=== PATIENT | female | born 1975 | race Caucasian/White ===

== ENCOUNTER 2017-02-25 12:36 | Emergency (ER) | payer SELFPAY ==
[~2017-02-25] VITALS: Ht 172.7 cm; Wt 99.8 kg
--- NOTE | 2017-02-25 12:49 | Emergency Room Report ---
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 N Clinical Suspician of Infection? N Mental Status: 1 - Regular (Normal Baseline) Sepsis Risk:Possible Sepsis Risk Have you (or family members/close friends) recently traveled outside the [place]? N If Yes, where/when: Have you had exposure to infectious disease within the past month? N TB? Other? Specify: Comment The patient arrives extremely anxious, stating that she was watching TV, reading her Bible and began feeling strange in the head and like her vision was going black. She laid down on the floor. She took her blood pressure and says he kept dropping down to 75 systolic. She did not pass out. Initially she did not have any problems breathing or with chest pain, but on the way here developed those symptoms as well. She has a history of anxiety. She says that she is extremely stressed and was up all night long to distress. She has had previous problems with chest pain and shortness of breath, she has seen a heat transfer technician. She says she had an echocardiogram that was normal. She says that she complained to her primary care physician last week that she was having palpitations and heart rate increases just walking across the room and her physician deandre some blood work, but she does not yet know the results. ALLERGIES Coded Allergies: No Known Allergies (02/25/17) History Medical History General CAD? No Angina: No AL: No Hypertension? No Hyperlipidemia? No CHF? No DVT? No PE? No COPD? No Asthma? No Anemia? Yes GERD? No Gastric ulcers? No GI Bleed? No Hernia? No Thyroid Problems? No Hypothyroidism? Yes CVA? No Seizures? No Diabetes? No Renal Insuffiency? No End Stage Renal Disease? No UTI? No Stones? No BPH? No GB Disease: No Nephritic Syndrome? No Asplenia? No Hepatitis? No Sickle Cell Disease? No Arthritis? No Migraines? No Cataracts? No Glaucoma? No MRSA? No HIV? No TB? No Anxiety? No Depression? No Cancer? 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 Social History Smoking Hx Smoker: Former Smoker Tobacco: No Review of Systems All Other Systems Reviewed and Negative Constitutional denies fever Eyes see HPI Respiratory shortness of breath Cardiovascular chest pain, palpitations Psychiatric/Neurological anxiety Physical Exam Vital Signs Vital Signs Date Time Temp Pulse Resp B/P Pulse O2 O2 Flow FiO2 Ox Delivery Rate 02/25 1359 68 18 137/95 99 02/25 1343 68 18 137/95 99 02/25 1336 16 02/25 1318 110 22 175/92 100 02/25 1238 98.3 120 22 177/98 100 General Appearance extrememly anxious and hyperventilating Eye Exam - bilateral eye normal exam, bilateral eye PERRL, bilateral eye EOMI Ear, Nose, Throat hearing grossly normal, normal ENT inspection Neck normal inspection, non-tender, supple, full range of motion Respiratory Status Yes: trachea midline, chest symmetrical, non tender chest. No: respiratory distress. Lung Sounds bilateral: normal breath sounds, lungs clear. Cardiovascular normal exam, regular rate/rhythm, no peripheral edema, no gallop, no JVD, no murmur, no rub, normal peripheral pulses Peripheral Pulses Pulses normal Yes Gastrointestinal normal bowel sounds, normal exam, non tender, soft, no organomegaly Extremities non-tender, normal range of motion, normal inspection Neurologic alert, machine bender II-XII nml as tested, normal exam, oriented x 3 Mental status anxious Skin intact, normal color, warm/dry Medical Decision Making LABS/Meds/Orders Pt receiving controlled substance in ED? Yes Bharath was queried for this patient? Yes Results/Orders Laboratory Tests 02/25/17 1240: TSH 2.22, Thyroxine (T4) 9.7 02/25/17 1240: Sodium 138, Potassium 3.1 L, Chloride 101, Carbon Dioxide 26, BUN 9, Creatinine 0.7, Estimated Creat Clear 167, Estimated GFR (MDRD) 92, Glucose 114 H, Calcium 9.3, Total Bilirubin 0.8, AST 12 L, ALT 21, Alkaline Phosphatase 78, Creatine Kinase 52, CK-MB (CK-2) Rel Index 1.0, CK and CKMB Interp < 0.5, Troponin I < 0.02, Total Protein 7.9, Albumin 4.1, Globulin 3.8 H, Albumin/Globulin Ratio 1.1, WBC 8.0, RBC 4.66, Hgb 13.7, Hct 41.2, MCV 88.3, RDW 12.6, Plt Count 294, MPV 7.6, Gran % 66.6, Gran # 5.3, Lymphocytes % 25.3, Monocytes % 6.0, Eosinophils % 1.1, Basophils % 0.9, Lymphocytes # 2.0, Monocytes # 0.5, Eosinophils # 0.1, Basophils # 0.1, PUBS MCHC 33.3, MCH 29.4 Current Medication Orders Sig/Kaylin Start time Last Medication Dose Route Stop Time Status Admin Potassium Chloride 40 MEQ ONCE ONE 02/25 1345 DC 02/25 PO 02/25 134 1342 Potassium Chloride 0 .STK-MED ONE 02/25 1341 DC PO Lorazepam 0 .STK-MED ONE 02/25 1333 DC .ROUTE Lorazepam 1 MG ONCE ONE 02/25 1315 DC IV 02/25 1316 Sodium Chloride 10 ML PRN PRN 02/25 1315 DCD IV 02/26 1301 Orders Procedure Date/time Status THYROID STIMULATING HORMONE 02/25 1312 Complete THYROXINE (T4) 02/25 1312 Complete ELECTROCARDIOGRAM REQUEST 02/25 1301 Active IV SALINE LOCK 02/25 1301 Active RV TECHNICIAN 02/25 1301 Active CBC WITH AUTO DIFF 02/25 1301 Complete CARDIAC ENZYMES 02/25 1301 Complete CHEM 12 PROFILE 02/25 1301 Complete CM/EKG CM/EKG Comments EKG interpreted by José Manuel Law MD: Rhythm: sinus tachycardia Rate: 117 [place]: normal Ectopy: none Conduction: normal ST Segment Changes: none T Wave Changes: none Q Waves: none No evidence of acute ischemia or injury Poor R-wave progression No prior EKGs available for comparison Progress - 1:50 PM: The patient's symptoms have completely resolved. She is now sitting upright in bed smiling using a smart phone. She does not want any further evaluation or treatment. She refused x-ray. She wants to be discharged. She declined Ativan. She says she just feels embarrassed. Departure Departure Disposition DC Home or Self Care(routine) Clinical Impression Primary Impression: Anxiety state Secondary Impressions: Acute hyperventilation syndrome, Chest pain, atypical Condition STABLE Patient Instructions DI for Anxiety -- Adult, DI for Atypical Chest Pain, DI for Hyperventilation Additional Instructions Additional instructions for CHEST PAIN: See your physician as soon as possible for further evaluation. Return immediately if worsening chest pain, vomiting, shortness of breath, fever, coughing of blood. ED Critical Care Critical Care No at [id number]
--- NOTE | 2017-02-25 12:49 | Emergency Room Report ---
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 N Clinical Suspician of Infection? N Mental Status: 1 - Regular (Normal Baseline) Sepsis Risk:Possible Sepsis Risk Have you (or family members/close friends) recently traveled outside the [place]? N If Yes, where/when: Have you had exposure to infectious disease within the past month? N TB? Other? Specify: Comment The patient arrives extremely anxious, stating that she was watching TV, reading her Bible and began feeling strange in the head and like her vision was going black. She laid down on the floor. She took her blood pressure and says he kept dropping down to 75 systolic. She did not pass out. Initially she did not have any problems breathing or with chest pain, but on the way here developed those symptoms as well. She has a history of anxiety. She says that she is extremely stressed and was up all night long to distress. She has had previous problems with chest pain and shortness of breath, she has seen a radiation therapy technician. She says she had an echocardiogram that was normal. She says that she complained to her primary care physician last week that she was having palpitations and heart rate increases just walking across the room and her physician deandre some blood work, but she does not yet know the results. ALLERGIES Coded Allergies: No Known Allergies (02/25/17) History Medical History General CAD? No Angina: No [place]: No Hypertension? No Hyperlipidemia? No CHF? No DVT? No PE? No COPD? No Asthma? No Anemia? Yes GERD? No Gastric ulcers? No GI Bleed? No Hernia? No Thyroid Problems? No Hypothyroidism? Yes CVA? No Seizures? No Diabetes? No Renal Insuffiency? No End Stage Renal Disease? No UTI? No Stones? No BPH? No GB Disease: No Nephritic Syndrome? No Asplenia? No Hepatitis? No Sickle Cell Disease? No Arthritis? No Migraines? No Cataracts? No Glaucoma? No MRSA? No HIV? No TB? No Anxiety? No Depression? No Cancer? 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 Social History Smoking Hx Smoker: Former Smoker Tobacco: No Review of Systems All Other Systems Reviewed and Negative Constitutional denies fever Eyes see HPI Respiratory shortness of breath Cardiovascular chest pain, palpitations Psychiatric/Neurological anxiety Physical Exam Vital Signs Vital Signs Date Time Temp Pulse Resp B/P Pulse O2 O2 Flow FiO2 Ox Delivery Rate 02/25 1359 68 18 137/95 99 02/25 1343 68 18 137/95 99 02/25 1336 16 02/25 1318 110 22 175/92 100 02/25 1238 98.3 120 22 177/98 100 General Appearance extrememly anxious and hyperventilating Eye Exam - bilateral eye normal exam, bilateral eye PERRL, bilateral eye EOMI Ear, Nose, Throat hearing grossly normal, normal ENT inspection Neck normal inspection, non-tender, supple, full range of motion Respiratory Status Yes: trachea midline, chest symmetrical, non tender chest. No: respiratory distress. Lung Sounds bilateral: normal breath sounds, lungs clear. Cardiovascular normal exam, regular rate/rhythm, no peripheral edema, no gallop, no JVD, no murmur, no rub, normal peripheral pulses Peripheral Pulses Pulses normal Yes Gastrointestinal normal bowel sounds, normal exam, non tender, soft, no organomegaly Extremities non-tender, normal range of motion, normal inspection Neurologic alert, stone product fabricator II-XII nml as tested, normal exam, oriented x 3 Mental status anxious Skin intact, normal color, warm/dry Medical Decision Making LABS/Meds/Orders Pt receiving controlled substance in ED? Yes Bharath was queried for this patient? Yes Results/Orders Laboratory Tests 02/25/17 1240: TSH 2.22, Thyroxine (T4) 9.7 02/25/17 1240: Sodium 138, Potassium 3.1 L, Chloride 101, Carbon Dioxide 26, BUN 9, Creatinine 0.7, Estimated Creat Clear 167, Estimated GFR (MDRD) 92, Glucose 114 H, Calcium 9.3, Total Bilirubin 0.8, AST 12 L, ALT 21, Alkaline Phosphatase 78, Creatine Kinase 52, CK-MB (CK-2) Rel Index 1.0, CK and CKMB Interp < 0.5, Troponin I < 0.02, Total Protein 7.9, Albumin 4.1, Globulin 3.8 H, Albumin/Globulin Ratio 1.1, WBC 8.0, RBC 4.66, Hgb 13.7, Hct 41.2, MCV 88.3, RDW 12.6, Plt Count 294, MPV 7.6, Gran % 66.6, Gran # 5.3, Lymphocytes % 25.3, Monocytes % 6.0, Eosinophils % 1.1, Basophils % 0.9, Lymphocytes # 2.0, Monocytes # 0.5, Eosinophils # 0.1, Basophils # 0.1, PUBS MCHC 33.3, MCH 29.4 Current Medication Orders Sig/Kaylin Start time Last Medication Dose Route Stop Time Status Admin Potassium Chloride 40 MEQ ONCE ONE 02/25 1345 DC 02/25 PO 02/25 134 1342 Potassium Chloride 0 .STK-MED ONE 02/25 1341 DC PO Lorazepam 0 .STK-MED ONE 02/25 1333 DC .ROUTE Lorazepam 1 MG ONCE ONE 02/25 1315 DC IV 02/25 1316 Sodium Chloride 10 ML PRN PRN 02/25 1315 DCD IV 02/26 1301 Orders Procedure Date/time Status THYROID STIMULATING HORMONE 02/25 1312 Complete THYROXINE (T4) 02/25 1312 Complete ELECTROCARDIOGRAM REQUEST 02/25 1301 Active IV SALINE LOCK 02/25 1301 Active ENERGY PROJECT MANAGER 02/25 1301 Active CBC WITH AUTO DIFF 02/25 1301 Complete CARDIAC ENZYMES 02/25 1301 Complete CHEM 12 PROFILE 02/25 1301 Complete CM/EKG CM/EKG Comments EKG interpreted by José Manuel Law MD: Rhythm: sinus tachycardia Rate: 117 [place]: normal Ectopy: none Conduction: normal ST Segment Changes: none T Wave Changes: none Q Waves: none No evidence of acute ischemia or injury Poor R-wave progression No prior EKGs available for comparison Progress - 1:50 PM: The patient's symptoms have completely resolved. She is now sitting upright in bed smiling using a smart phone. She does not want any further evaluation or treatment. She refused x-ray. She wants to be discharged. She declined Ativan. She says she just feels embarrassed. Departure Departure Disposition DC Home or Self Care(routine) Clinical Impression Primary Impression: Anxiety state Secondary Impressions: Acute hyperventilation syndrome, Chest pain, atypical Condition STABLE Patient Instructions DI for Anxiety -- Adult, DI for Atypical Chest Pain, DI for Hyperventilation Additional Instructions Additional instructions for CHEST PAIN: See your physician as soon as possible for further evaluation. Return immediately if worsening chest pain, vomiting, shortness of breath, fever, coughing of blood. ED Critical Care Critical Care No at [id number]
[2017-02-25 13:06] LABS: HEMOGLOBIN 13.7 g/dL (12.2-16.2); LYMPH % 25.3 % (10-50.0)
[2017-02-25 13:29] LABS: BUN 9 mg/dL (7-18); GFR (ESTIMATED) 92 ML/MIN (59-)
[2017-02-25 13:59] VITALS: BP 137/95
== END 2017-02-25 14:01 | disposition home or self-care (01) ==
LOC: ER 12:36
PROVIDERS: Emergency Medicine
DX: F41.1 Generalized anxiety disorder (principal); F45.8 Other somatoform disorders; R07.89 Other chest pain; Z87.891 Personal history of nicotine dependence